=== PATIENT | male | born 1930 | race Caucasian/White ===

== ENCOUNTER 2019-01-10 19:40 | Inpatient (IN) ==
[2019-01-10] MEDS ORDERED: ONDANSETRON 4 MG/2 ML VIAL IV ONE (19:49)
[2019-01-10] MEDS ORDERED: HYDROmorphone 2 MG/ML VIAL IV PRN ×3 (19:49→21:32)
--- NOTE | 2019-01-10 19:59 | Emergency Department Note ---
Abdominal Pain HPI - General Chief Complaint: Abdominal Pain Stated Complaint: right lower abdomen pain Time Seen by Provider: 01/10/19 19:42 Source: patient Mode of arrival: wheelchair Limitations: no limitations - History of Present Illness HPI Narrative: 88-year-old male presents after his primary care provider called him and told him to come into the ER. He has had 24-hour period of right lower quadrant abdominal pain that is getting worse. Increases with any type of movement but is also constant. Positive chills but unknown fever. Positive nausea but no vomiting or diarrhea. Decreased appetite. States he ate yesterday but has only drink water today. States he is continuing to get worse instead of better. Primary care provider called him and told him to come to the ER because CT scan results were given tonight at 1900 and show appendicitis. - Related Data Home Medications Medication Instructions Recorded Confirmed aspirin 81 mg tablet,delayed 81 mg PO QAM tab 12/14/17 01/10/19 release carvedilol 6.25 mg tablet 6.25 mg PO BID 12/14/17 01/10/19 gabapentin 100 mg capsule 100 mg PO BID cap 12/14/17 01/10/19 hydrocodone 5 mg-acetaminophen 325 1 tab PO Q6H PRN 12/14/17 01/10/19 mg tablet levothyroxine 112 mcg capsule 112 mcg PO QDAY 12/14/17 01/10/19 losartan 50 mg tablet 50 mg PO QDAY 12/14/17 01/10/19 simvastatin 20 mg tablet 20 mg PO QDAY tab 12/14/17 01/10/19 triamcinolone acetonide 0.1 % 1 applic TOPICAL QDAY 12/14/17 01/10/19 topical cream Previous Rx's Medication Instructions Recorded hydrocodone 5 mg-acetaminophen 325 1 tab PO Q6H PRN #20 tab 01/10/19 mg tablet ondansetron 4 mg disintegrating 4 mg PO Q6H PRN #20 tab 01/10/19 tablet Allergies Allergy/AdvReac Type Severity Reaction Status Date / Time No Known Drug Allergies Allergy Verified 01/10/19 19:45 Review of Systems All systems ED: reviewed and negative except as stated. Abdominal Pain PMH - Past Medical History PMFSH Narrative: Medical History (Last Reviewed 01/10/19 @ 10:09 by Anuradha Hogan PA-C) History of cardiac murmur (Chronic) Abdominal lymphadenopathy (Chronic) Hypertension (Chronic) Gross hematuria (Chronic) UTI (urinary tract infection) (Chronic) Past Surgical History (Last Reviewed 01/10/19 @ 10:09 by Anuradha Hogan PA-C) History of surgery (Acute) S/P hernia repair (Acute) History of cataract surgery (Chronic) - Social History Smoking status: Former smoker Alcohol use: Reports: None Drug use: Reports: none Physical Exam Limitations: no limitations General appearance: alert, grimacing Head: atraumatic, normocephalic, normal inspection Eye: Present: normal appearance. Absent: conjunctival injection ENT: Present: mucous membranes moist Chest: Present: symmetric chest wall rise Respiratory: Present: normal lung sounds bilaterally. Absent: respiratory distress, rales/crackles, wheezes, accessory muscle use Cardiovascular: Present: regular rate, normal heart sounds Abdominal: Present: soft, tenderness (rlq), guarding (rlq), rebound (rlq), normal bowel sounds. Absent: distention, mass Neurological: Present: alert, oriented X3 Psychiatric: Present: normal affect, normal mood Skin: Present: warm, dry, intact, normal color. Absent: rash, hives, cyanosis, diaphoresis Course Course Narrative: I did talk to the surgeon on-call, Dr. Tavarez at 1955 and he agrees to accept this patient. He would like me to place some ED transition orders in place patient n.p.o. after midnight in preparation for surgery in the morning. Patient agreeable. Vital Signs Temperature 98.5 F 01/10/19 19:41 Pulse Rate 84 01/10/19 19:41 Respiratory Rate 20 01/10/19 19:41 Blood Pressure 112/64 01/10/19 19:41 Pulse Oximetry (%) 95 01/10/19 19:41 Temperature 98.5 F 01/10/19 19:41 Pulse Rate 84 01/10/19 19:41 Respiratory Rate 20 01/10/19 19:41 Blood Pressure 112/64 01/10/19 19:41 Pulse Oximetry (%) 95 01/10/19 19:41 Abdominal Pain - Lab Data Lab results reviewed: Yes I reviewed the patient's lab results. - Radiology Data Radiology results reviewed: Yes I reviewed the patient's radiology results. Disposition Pt seen by [facility]/PA only: Yes Clinical Impression: Appendicitis, Abdominal pain, Nausea Disposition: Xfer As Outpt/Obs ([facility]) Condition: Fair Referrals: Alec Diggs MD [Primary Care Provider] - Satish Tavarez MD [Physician] - Time of Disposition: 20:00
[2019-01-10] MEDS ORDERED: 0.9 % SODIUM CHLORIDE 1,000 ML IV SCH (20:00)
[2019-01-10] MEDS ORDERED: ONDANSETRON 4 MG/2 ML VIAL IV PRN (20:03)
[2019-01-10 20:31] LABS: Basophils # (Auto) 0 K/mcL (0.0-0.3); Basophils % (Auto) 0.2 % (0.0-2.0); Eosinophils # (Auto) 0 K/mcL (0.0-0.7); Eosinophils % (Auto) 0 % (0.0-7.0); Granulocytes % (Auto) 45.4 % (38.0-78.0); Hematocrit 41.5 % (41.0-55.0); Hemoglobin 13.6 g/dL (13.5-16.5); Lymphocytes # (Auto) 9.5 K/mcL (1.5-4.8); Mean Cell Volume 88.9 fL (80.0-100.0); Mean Corpuscular HGB Conc 32.8 g/dL (31.0-36.0); Mean Platelet Volume 7.5 fL (7.4-10.4); Monocytes # (Auto) 1.5 K/mcL (0.1-0.9); Monocytes % (Auto) 7.4 % (1.0-12.0); Platelet Count 134 K/mcL (140-440); RBC 4.67 M/mcL (4.50-5.90); Red Cell Distribution Width 15.2 % (11.5-14.5); WBC 20.2 K/mcL (4.5-11.0)
[2019-01-10] MEDS: PIPERACILLIN SODIUM/TAZOBACTAM 3.375 GM in DEXTROSE 5% IN WATER 50 ML IV SCH (20:34)
[2019-01-10 20:50] LABS: ALT/SGPT 8 U/l (0-40); AST/SGOT 17 U/l (0-37); Albumin 3.8 gm/dL (3.2-5.2); Albumin/Globulin Ratio 1.3 (1.0-2.3); Alkaline Phosphatase 33 U/L (39-117); Bilirubin,Total 1.8 mg/dL (0.0-1.0); Blood Urea Nitrogen 28 mg/dl (8-23); Calcium 8.7 mg/dl (8.6-10.4); Carbon Dioxide 23 mmol/L (22-30); Chloride 99 mmol/L (96-108); Globulin 2.9 gm/dL (2.2-3.7); Glomerular Filtration Rate 45; Glucose 109 mg/dL (70-105)
[2019-01-10] MEDS: 0.9 % SODIUM CHLORIDE 1,000 ML IV SCH (21:35)
[2019-01-10 22:41] LABS: INR 1.3 (0.9-1.1); Prothrombin Time 16.5 sec (11.9-14.5)
[2019-01-10] MEDS ORDERED: HYDROmorphone 2 MG/ML VIAL ONE (23:22)
--- NOTE | 2019-01-11 02:52 | XRay Report ---
CLINICAL INFORMATION: surgery COMPARISON: None. FINDINGS: Heart is borderline enlarged. 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 Sternotomy changes noted. Tortuous thoracic aorta appreciated. The remaining mediastinum and pulmonary vessels are normal. Chronic elevation of the left diaphragm has resulted in subsegmental atelectasis in the left base. No infiltrates IMPRESSION: No acute disease Interpreted and Authenticated by: Mike Weiner 01/11/19
[2019-01-11] MEDS: PIPERACILLIN SODIUM/TAZOBACTAM 3.375 GM in DEXTROSE 5% IN WATER 50 ML IV SCH (02:55)
[2019-01-11] MEDS ORDERED: IPRATROPIUM/ALBUTEROL 3 ML AMPUL.NEB NEB PRN ×2 (07:00→11:42)
[2019-01-11] MEDS ORDERED: SCOPOLAMINE 1 PATCH PATCH TOPICAL PRN (07:00)
[2019-01-11] MEDS: PIPERACILLIN SODIUM/TAZOBACTAM 2.25 GM in DEXTROSE 5% IN WATER 50 ML IV SCH ×4 (08:09→17:47)
[2019-01-11] MEDS: 0.9 % SODIUM CHLORIDE 1,000 ML IV SCH ×2 (09:43→13:06)
--- NOTE | 2019-01-11 09:59 | General Surg History&Physical ---
History of Present Illness Patient information: Note initiated : 01/11/19 at 9:57 am Service Date, if different from initiated Date: [] Patient: Billy Zelaya 88 y/o M admitted on 01/10/19 for right lower abdomen pain. Chief Complaint: [] HPI: Mr. Zelaya is a 88 year old M admitted with appendicitis. The patient has a 2 day history of chills fever, nausea, vomiting and lower abdominal pain. The pain started in the mid hypogastrium and radiated to the right lower quadrant. Is primarily right lower quadrant at this time. He was initially seen in urgent care and discharged home to have a CT. Blood work that was drawn showed a white count of 20,[address] showed changes of acute appendicitis. He will return to the emergency room and was admitted. Patient remains symptomatic and is scheduled for appendectomy later today. 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 Hypertension History of UTI and BPH symptoms Past surgical history: porcine valve replacement 6 years ago; he is not sure of site Ventral hernia repair Past family history: Father due to heart attack Hypertension Mother age 92 due to natural causes Past social history: Former smoker Drinks alcohol twice weekly Denies drug use Medications and Allergies Home Medications Medication Instructions Recorded Confirmed Type aspirin 81 mg tablet,delayed 81 mg PO QAM tab 12/14/17 01/10/19 History release carvedilol 6.25 mg tablet 6.25 mg PO BID 12/14/17 01/10/19 History gabapentin 100 mg capsule 100 mg PO BID cap 12/14/17 01/10/19 History hydrocodone 5 mg-acetaminophen 325 1 tab PO Q6H PRN 12/14/17 01/10/19 History mg tablet levothyroxine 112 mcg capsule 112 mcg PO QDAY 12/14/17 01/10/19 History losartan 50 mg tablet 50 mg PO QDAY 12/14/17 01/10/19 History simvastatin 20 mg tablet 20 mg PO QDAY tab 12/14/17 01/10/19 History triamcinolone acetonide 0.1 % 1 applic TOPICAL QDAY 12/14/17 01/10/19 History topical cream hydrocodone 5 mg-acetaminophen 325 1 tab PO Q6H PRN #20 tab 01/10/19 01/10/19 Rx mg tablet ondansetron 4 mg disintegrating 4 mg PO Q6H PRN #20 tab 01/10/19 01/10/19 Rx tablet Allergies Allergy/AdvReac Type Severity Reaction Status Date / Time No Known Drug Allergies Allergy Verified 01/10/19 19:45 Exam Temp Pulse Resp BP Pulse Ox 98.7 F 73 14 104/59 92 01/11/19 07:04 01/11/19 07:04 01/11/19 07:04 01/11/19 07:04 01/11/19 07:04 - General physical appearance well developed, well nourished, no distress, other (patient appears to be in relatively good health) - Eyes PERRL, normal ocular movement - ENT normal pinna, normal nares, normal mucosa, no hearing loss, no congestion - Head Head exam IM: Present: atraumatic, normocephalic - Neck no masses, no bruits, trachea midline, no lymphadenopathy, no venous distension - Cardiovascular Cardiovascular exam IM: Present: normal rate and rhythm, irregular rhythm, +S1, +S2, tachycardia. Absent: JVD Type of murmur IM: Present: systolic (midsystolic click) - Respiratory normal expansion, normal respiratory effort, clear to percussion, clear to auscultation - Abdomen Abdomen: Present: soft, tender, bowel sounds, distended (mild distention with active bowel sounds; tenderness with guarding in the right lower quadrant) Hernia: Present: none - Genitourinary Present: normal penis with no external lesions - Integumentary Present: no rash, no growths, no abnormal pigmentation - Neurologic Present: normal coordination, normal sensation - Musculoskeletal Present: normal gait, normal posture - Psychiatric Present: oriented to time, oriented to person, oriented to place, speech is normal, memory intact Assessment and Plan (1) Acute appendicitis Patient has been counseled for laparoscopic appendectomy. He has received intravenous antibiotics Status: Acute Qualifiers: Acute appendicitis type: with localized peritonitis Appendicitis perforati on presence: without perforation (2) History of heart valve replacement with porcine valve Status: Acute (3) History of cardiac murmur Status: Chronic (4) Hypertension Status: Chronic
[2019-01-11 10:36] LABS: Appearance,Urine CLEAR; Bacteria,Urine 0 /hpf (0); Bilirubin,Urine NEG (NEG); Color,Urine YELLOW; Culture Indicated,Urine NO; Glucose,Urine (UA) NEGATIVE (NEG); Ketones,Urine NEG (NEG); Leukocyte Esterase,Urine NEG /uL (NEG); Nitrate,Urine NEG (NEG); Protein,Urine 100 mg/dL (NEG); Specific Gravity,Urine 1.051 (1.000-1.035); Urine Blood NEG mg/dL (<0.03); Urine RBC 3 /hpf (0-1); Urine Squamous Epithelial Cell 0 /hpf (0-4); Urine WBC 1 /hpf (0-4); Urobilinogen,Urine NEG (NEG)
[2019-01-11 10:44] LABS: Basophils # (Auto) 0 K/mcL (0.0-0.3); Basophils % (Auto) 0.1 % (0.0-2.0); Eosinophils # (Auto) 0 K/mcL (0.0-0.7); Eosinophils % (Auto) 0.1 % (0.0-7.0); Hematocrit 36.9 % (41.0-55.0); Hemoglobin 12.2 g/dL (13.5-16.5); Lymphocytes # (Auto) 7.7 K/mcL (1.5-4.8); Lymphocytes % (Auto) 45.2 % (15.5-49.0); Mean Cell Volume 88.4 fL (80.0-100.0); Mean Corpuscular HGB Conc 33.1 g/dL (31.0-36.0); Monocytes # (Auto) 1.1 K/mcL (0.1-0.9); Monocytes % (Auto) 6.6 % (1.0-12.0); Platelet Count 108 K/mcL (140-440); RBC 4.17 M/mcL (4.50-5.90); Red Cell Distribution Width 15.1 % (11.5-14.5); WBC 17.1 K/mcL (4.5-11.0)
[2019-01-11] MEDS ORDERED: ONDANSETRON 4 MG/2 ML VIAL IV ONE (11:15)
[2019-01-11] MEDS ORDERED: DEXAMETHASONE 10 MG/ML VIAL IV ONE (11:15)
[2019-01-11] MEDS ORDERED: SUGAMMADEX SODIUM 200 MG/2 ML VIAL IV ONE (11:15)
[2019-01-11] MEDS ORDERED: KETAMINE 100 MG/ML ML IV ONE (11:15)
[2019-01-11] MEDS ORDERED: PHENYLEPHRINE 10 MG/ML VIAL IV ONE (11:15)
[2019-01-11] MEDS ORDERED: MIDAZOLAM 2 MG/2 ML VIAL IV ONE (11:15)
[2019-01-11] MEDS ORDERED: fentaNYL 250 MCG/5 ML VIAL IV ONE (11:15)
[2019-01-11] MEDS ORDERED: ROCURONIUM 10 MG/ML ML IV ONE (11:15)
[2019-01-11] MEDS ORDERED: LIDOCAINE HCL/PF 100 MG/5 ML SYRINGE IV ONE (11:15)
[2019-01-11] MEDS ORDERED: PROPOFOL 200 MG/20 ML VIAL IV ONE (11:15)
[2019-01-11] MEDS ORDERED: ePHEDrine 50 MG/ML AMPUL IV ONE (11:15)
[2019-01-11] MEDS ORDERED: GLYCOPYRROLATE 0.2 MG/ML VIAL IV ONE (11:15)
[2019-01-11] MEDS ORDERED: ACETAMINOPHEN 1,000 MG/100 ML BOTTLE IV ONE (11:42)
[2019-01-11] MEDS ORDERED: LACTATED RINGERS 250 ML IV PRN (11:42)
[2019-01-11] MEDS ORDERED: NALOXONE HCL 0.4 MG/ML VIAL IV PRN ×2 (11:42→12:27)
[2019-01-11] MEDS ORDERED: FLUMAZENIL 0.1 MG/ML ML IV PRN (11:42)
[2019-01-11] MEDS ORDERED: BENZOCAINE/MENTHOL 1 LOZENGE PO PRN (11:42)
[2019-01-11] MEDS ORDERED: HYDROmorphone 2 MG/ML VIAL IV PRN (11:42)
[2019-01-11] MEDS ORDERED: MEPERIDINE 25 MG/ML SYRINGE IV PRN (11:42)
[2019-01-11] MEDS ORDERED: ONDANSETRON 4 MG/2 ML VIAL IV PRN ×2 (11:42→12:27)
[2019-01-11] MEDS ORDERED: METHOCARBAMOL 1,000 MG/10 ML VIAL IV PRN (11:42)
[2019-01-11] MEDS ORDERED: fentaNYL 100 MCG/2 ML VIAL IV PRN (11:42)
[2019-01-11] MEDS ORDERED: LACTATED RINGERS 1,000 ML IV SCH (11:45)
[2019-01-11 11:46] LABS: ALT/SGPT 8 U/l (0-40); AST/SGOT 13 U/l (0-37); Albumin 3.2 gm/dL (3.2-5.2); Albumin/Globulin Ratio 1.4 (1.0-2.3); Alkaline Phosphatase 35 U/L (39-117); Bilirubin,Direct 0.4 mg/dL (0.0-0.3); Bilirubin,Total 1.3 mg/dL (0.0-1.0); Blood Urea Nitrogen 28 mg/dl (8-23); Calcium 7.8 mg/dl (8.6-10.4); Carbon Dioxide 23 mmol/L (22-30); Chloride 104 mmol/L (96-108); Globulin 2.3 gm/dL (2.2-3.7); Glomerular Filtration Rate 45; Glucose 86 mg/dL (70-105); Lactate Dehydrogenase 242 U/L (94-250); Phosphorous 3.6 mg/dL (2.7-4.5); Triglycerides 61 mg/dl (<150); Uric Acid 3.6 mg/dL (2.5-8.0)
--- NOTE | 2019-01-11 12:16 | Brief Operative Note ---
Date of procedure: 01/11/19 Pre-op diagnosis: acute appendicitis Post-op diagnosis: other (acute appendicitis with perforation) Procedure: laparoscopic appendectomy Grafts/Implants: No (#10 RENUKA DRAIN) Anesthesia: GETA Findings: ACUTE SEVERE INFLAMMATION WITH PERFORATION AND PELVIC PURULENT FLUID Complications: none Surgeon: Satish Tavarez Estimated blood loss (cc): 10 Specimens Removed/Pathology: other (APPENDIX) Condition: stable Disposition: PACU
[2019-01-11] MEDS ORDERED: PIPERACILLIN SODIUM/TAZOBACTAM 3.375 GM in DEXTROSE 5% IN WATER 50 ML IV SCH (12:30)
[2019-01-11] MEDS: 0.9 % SODIUM CHLORIDE 10 ML SYRINGE IV SCH ×2 (13:07→20:51)
--- NOTE | 2019-01-11 15:33 | Operative Note ---
DATE OF OPERATION: 01/11/2019 PREOPERATIVE DIAGNOSIS: Acute appendicitis. POSTOPERATIVE DIAGNOSIS: Acute appendicitis with perforation. PROCEDURE: Laparoscopic appendectomy. SURGEON: Satish Tavarez M.D. FINDINGS: Acute severe inflammation of the appendix with perforation and collection of purulent fluid in the pelvis. DESCRIPTION OF PROCEDURE: Under general anesthesia, the patient's abdomen was prepped and draped in a sterile field. An infraumbilical incision was made and Veress needle was inserted uneventfully. Abdomen was insufflated with 3 liters of CO2. A 12 mm port was placed. Laparoscope was placed. Under videoscopic guidance, a 5 mm port was placed in the suprapubic midline and a 12 mm port in the left lower quadrant. The patient was placed in deep Trendelenburg position and rotated to the left. It was noted that there was purulence in the pelvis. There was also purulence along the right gutter. In this area, a very severely inflamed, edematous appendix with necrotic areas was noted. There was an area of perforation with free pouring of pus down the right gutter. The mesoappendix was grasped, and the appendix was followed back to its junction with the cecum. A window was made in the mesoappendix at this point. The appendix was transected using an Endo MARISSA stapler. The mesoappendix was transected using an Endo MARISSA stapler. The appendix was placed in an Endopouch and retrieved. Copious irrigation in the right gutter and in the pelvis was carried out until the fluid returned clear. A #10 David drain was placed in the right gutter and in the pelvis and brought out through the suprapubic midline incision. Further irrigation was carried out. There was no bleeding. CO2 was allowed to escape from the abdomen and the ports were removed. Fascia at the umbilicus was closed with interrupted 0 Vicryl. Fascia in the left lower quadrant was closed with interrupted 0 Vicryl. The drain was secured with 2-0 nylon. Tegaderm dressings were placed. The patient tolerated the procedure well. He was awakened, extubated, and transferred to the postanesthetic care unit in stable, satisfactory condition. LCS:meme Job ID: [id number] Doc ID: [id number] Satish Tavarez M.D.
[2019-01-11] MEDS: CARVEDILOL 6.25 MG TABLET PO SCH (17:47)
[2019-01-11] MEDS: GABAPENTIN 100 MG CAPSULE PO SCH (21:01)
[2019-01-12] MEDS: PIPERACILLIN SODIUM/TAZOBACTAM 2.25 GM in DEXTROSE 5% IN WATER 50 ML IV SCH ×5 (00:06→23:51)
[2019-01-12] MEDS: 0.9 % SODIUM CHLORIDE 1,000 ML IV SCH ×2 (04:04→17:19)
[2019-01-12 05:38] LABS: Basophils # (Auto) 0 K/mcL (0.0-0.3); Basophils % (Auto) 0.1 % (0.0-2.0); Eosinophils # (Auto) 0 K/mcL (0.0-0.7); Eosinophils % (Auto) 0.2 % (0.0-7.0); Granulocytes % (Auto) 48.5 % (38.0-78.0); Hematocrit 36.5 % (41.0-55.0); Hemoglobin 11.9 g/dL (13.5-16.5); Lymphocytes # (Auto) 7.6 K/mcL (1.5-4.8); Lymphocytes % (Auto) 45.8 % (15.5-49.0); Mean Cell Volume 89.3 fL (80.0-100.0); Mean Corpuscular HGB Conc 32.6 g/dL (31.0-36.0); Mean Platelet Volume 7.8 fL (7.4-10.4); Monocytes # (Auto) 0.9 K/mcL (0.1-0.9); Monocytes % (Auto) 5.4 % (1.0-12.0); Platelet Count 106 K/mcL (140-440); RBC 4.09 M/mcL (4.50-5.90); Red Cell Distribution Width 15.2 % (11.5-14.5); WBC 16.5 K/mcL (4.5-11.0)
[2019-01-12] MEDS: 0.9 % SODIUM CHLORIDE 10 ML SYRINGE IV SCH ×3 (06:01→21:47)
[2019-01-12 06:03] LABS: ALT/SGPT 12 U/l (0-40); AST/SGOT 15 U/l (0-37); Albumin 3.1 gm/dL (3.2-5.2); Albumin/Globulin Ratio 1.3 (1.0-2.3); Alkaline Phosphatase 42 U/L (39-117); Bilirubin,Direct 0.2 mg/dL (0.0-0.3); Bilirubin,Total 0.7 mg/dL (0.0-1.0); Blood Urea Nitrogen 31 mg/dl (8-23); Calcium 7.4 mg/dl (8.6-10.4); Carbon Dioxide 23 mmol/L (22-30); Chloride 99 mmol/L (96-108); Globulin 2.4 gm/dL (2.2-3.7); Glomerular Filtration Rate 42; Glucose 160 mg/dL (70-105); Lactate Dehydrogenase 227 U/L (94-250); Phosphorous 3.2 mg/dL (2.7-4.5); Triglycerides 64 mg/dl (<150)
[2019-01-12] MEDS: LEVOTHYROXINE 125 MCG TABLET PO SCH (07:40)
[2019-01-12] MEDS: CARVEDILOL 6.25 MG TABLET PO SCH ×2 (08:12→17:36)
[2019-01-12] MEDS: GABAPENTIN 100 MG CAPSULE PO SCH ×2 (08:41→21:15)
[2019-01-12] MEDS: LOSARTAN 50 MG TABLET PO SCH (08:41)
[2019-01-12] MEDS ORDERED: LEVOTHYROXINE SODIUM 112 MCG PO SCH (09:00)
[2019-01-12] MEDS ORDERED: FLU VACC QS2019-20(6MOS UP)/PF 60 MCG/0.5 ML SYRINGE IM ONE (10:00)
--- NOTE | 2019-01-12 13:10 | Surgical Pathology Report ---
HISTOLOGY SPECIMEN MICROSCOPIC DIAGNOSIS APPENDIX, APPENDECTOMY: -- ACUTE APPENDICITIS WITH SEROSITIS. (EBD:celi) PROCEDURAL IMPRESSION Acute appendicitis. GROSS DESCRIPTION Received in formalin labeled appendix, is a lugo-stevenson appendix with stevenson attached fat and measures 7.4 cm in length x 1 cm in diameter. The margin is stapled and inked black with up to 1.7 cm of stevenson attached fat. There is lugo-stevenson exudate on the surface. Approximately 1.3 cm from the resection margin there is a 0.5 x 0.8 cm dusky lugo area. Sectioning reveals stevenson fecal material and an area corresponding with the serosal exudate. There is a 0.5 cm possible cavity filled with viscous lugo material. Intelligence Clerk sections are submitted in one cassette. (SCB:celi) Electronically Signed by: Linda Aguilar M.D.
--- NOTE | 2019-01-12 16:48 | General Surgery Progress Note ---
Subjective Patient reports: feels better, pain is less, tolerating liquids well, flatus, no bowel movement, afebrile Narrative: Note initiated : 01/12/19 at 4:45 pm Service Date, if different from initiated Date: [] Patient: Billy Zelaya 88 y/o M admitted on 01/10/19 for right lower abdomen pain. Chief Complaint: Patient states that he feels better. He has been afebrile. He had mild nausea earlier but has tolerated liquids on day. He's had flatus but no bowel movement. White blood count 16.5, hemoglobin 11.9, BUN 31, creatinine 1.5. MIRA drainage is purulent & bloody.] Objective Temp Pulse Resp BP Pulse Ox 97.8 F 68 18 138/72 94 01/12/19 12:00 01/12/19 12:00 01/12/19 12:00 01/12/19 12:00 01/12/19 12:00 - Additional Data Intake & Output - Last 24 hours: Intake & Output 01/10/19 01/11/19 01/12/19 01/13/19 05:59 05:59 05:59 05:59 Intake Total 92 2410 1210 Output Total 125 720 885 Balance -33 1690 325 Weight 154 lb 165 lb 165 lb - General physical appearance well developed, well nourished, no distress, other (mild pain in the right lower quadrant) - Eyes PERRL, normal ocular movement - ENT normal pinna, normal nares, normal mucosa, no hearing loss, no congestion - Neck no masses, no bruits, trachea midline, no lymphadenopathy, no venous distension - Respiratory normal expansion, normal respiratory effort, clear to auscultation - Cardiovascular Cardiovascular exam: Present: normal rate and rhythm, RRR, +S1, +S2. Absent: JVD, tachycardia - Abdomen tender (tenderness in right lower quadrant and around port sites), bowel sounds (present), surgical scars (none), masses (none), distended (mild distention and lower abdomen) - Integumentary no rash, no growths, no abnormal pigmentation - Neurologic normal coordination, normal sensation - Musculoskeletal normal gait, normal posture - Psychiatric oriented to time, oriented to person, oriented to place, speech is normal, memory intact - Labs 01/12/19 04:32 01/12/19 04:32 Diabetes panel 01/12/19 Range/Units 04:32 Sodium 130 L (133-145) mmol/L Potassium 4.4 (3.3-5.1) mmol/L Chloride 99 (96-108) mmol/L Carbon Dioxide 23 (22-30) mmol/L BUN 31 H (8-23) mg/dl Creatinine 1.5 H (0.7-1.2) mg/dl Glucose 160 H (70-105) mg/dL Calcium 7.4 L (8.6-10.4) mg/dl AST 15 (0-37) U/l ALT 12 (0-40) U/l Alkaline Phosphatase 42 (39-117) U/L Total Protein 5.5 L (5.9-8.4) gm/dL Albumin 3.1 L (3.2-5.2) gm/dL Triglycerides 64 (<150) mg/dl Calcium panel 01/12/19 Range/Units 04:32 Calcium 7.4 L (8.6-10.4) mg/dl Phosphorus 3.2 (2.7-4.5) mg/dL Albumin 3.1 L (3.2-5.2) gm/dL Pituitary panel 01/12/19 Range/Units 04:32 Sodium 130 L (133-145) mmol/L Potassium 4.4 (3.3-5.1) mmol/L Chloride 99 (96-108) mmol/L Carbon Dioxide 23 (22-30) mmol/L BUN 31 H (8-23) mg/dl Creatinine 1.5 H (0.7-1.2) mg/dl Glucose 160 H (70-105) mg/dL Calcium 7.4 L (8.6-10.4) mg/dl Adrenal panel 01/12/19 Range/Units 04:32 Sodium 130 L (133-145) mmol/L Potassium 4.4 (3.3-5.1) mmol/L Chloride 99 (96-108) mmol/L Carbon Dioxide 23 (22-30) mmol/L BUN 31 H (8-23) mg/dl Creatinine 1.5 H (0.7-1.2) mg/dl Glucose 160 H (70-105) mg/dL Calcium 7.4 L (8.6-10.4) mg/dl Total Bilirubin 0.7 (0.0-1.0) mg/dL AST 15 (0-37) U/l ALT 12 (0-40) U/l Alkaline Phosphatase 42 (39-117) U/L Total Protein 5.5 L (5.9-8.4) gm/dL Albumin 3.1 L (3.2-5.2) gm/dL Assessment and Plan (1) Acute appendicitis Status: Acute Assessment and plan: Clinically improved but still with significant leukocytosis We'll check pro-calcitonin Advance diet in the morning Current Visit: Yes (2) History of heart valve replacement with porcine valve Status: Acute Current Visit: Yes (3) History of cardiac murmur Status: Chronic Current Visit: No (4) Hypertension Status: Chronic Current Visit: No (5) Dehydration, moderate Status: Acute Assessment and plan: We'll continue slow hydration due to advanced age Current Visit: Yes - Time Spent With Patient Total time spent is greater than 50% in coordination of care (as documented) at patient's floor/unit and/or counseling patient:
[2019-01-12] MEDS: HYDROmorphone 2 MG/ML VIAL IV PRN (18:22)
[2019-01-12] MEDS: ACETAMINOPHEN 1,000 MG/100 ML BOTTLE IV SCH (19:15)
[2019-01-13] MEDS: ACETAMINOPHEN 1,000 MG/100 ML BOTTLE IV SCH ×4 (01:00→19:24)
[2019-01-13 05:27] LABS: Basophils # (Auto) 0 K/mcL (0.0-0.3); Basophils % (Auto) 0.1 % (0.0-2.0); Eosinophils # (Auto) 0.1 K/mcL (0.0-0.7); Eosinophils % (Auto) 0.4 % (0.0-7.0); Granulocytes % (Auto) 33.8 % (38.0-78.0); Hematocrit 37.2 % (41.0-55.0); Hemoglobin 12.1 g/dL (13.5-16.5); Lymphocytes # (Auto) 13.1 K/mcL (1.5-4.8); Lymphocytes % (Auto) 60.3 % (15.5-49.0); Mean Cell Volume 89.9 fL (80.0-100.0); Mean Corpuscular HGB Conc 32.7 g/dL (31.0-36.0); Mean Platelet Volume 7.8 fL (7.4-10.4); Monocytes # (Auto) 1.2 K/mcL (0.1-0.9); Monocytes % (Auto) 5.4 % (1.0-12.0); Platelet Count 121 K/mcL (140-440); RBC 4.13 M/mcL (4.50-5.90); Red Cell Distribution Width 15.6 % (11.5-14.5); WBC 21.7 K/mcL (4.5-11.0)
[2019-01-13] MEDS: PIPERACILLIN SODIUM/TAZOBACTAM 2.25 GM in DEXTROSE 5% IN WATER 50 ML IV SCH ×4 (05:28→23:17)
[2019-01-13] MEDS: 0.9 % SODIUM CHLORIDE 10 ML SYRINGE IV SCH ×3 (05:29→21:03)
[2019-01-13 05:40] LABS: ALT/SGPT 11 U/l (0-40); AST/SGOT 13 U/l (0-37); Albumin/Globulin Ratio 1.3 (1.0-2.3); Alkaline Phosphatase 39 U/L (39-117); Bilirubin,Direct < 0.2 mg/dL (0.0-0.3); Bilirubin,Total 0.6 mg/dL (0.0-1.0); Blood Urea Nitrogen 24 mg/dl (8-23); Calcium 7.8 mg/dl (8.6-10.4); Carbon Dioxide 25 mmol/L (22-30); Chloride 103 mmol/L (96-108); Globulin 2.4 gm/dL (2.2-3.7); Glomerular Filtration Rate 45; Glucose 98 mg/dL (70-105); Lactate Dehydrogenase 210 U/L (94-250); Phosphorous 2.5 mg/dL (2.7-4.5); Triglycerides 111 mg/dl (<150); Uric Acid 3.2 mg/dL (2.5-8.0)
[2019-01-13] MEDS: LEVOTHYROXINE 125 MCG TABLET PO SCH (07:35)
[2019-01-13] MEDS: GABAPENTIN 100 MG CAPSULE PO SCH ×2 (08:13→21:01)
[2019-01-13] MEDS: CARVEDILOL 6.25 MG TABLET PO SCH ×2 (08:14→17:10)
[2019-01-13] MEDS: LOSARTAN 50 MG TABLET PO SCH (08:14)
[2019-01-13] MEDS: 0.9 % SODIUM CHLORIDE 1,000 ML IV SCH ×2 (11:41→19:27)
--- NOTE | 2019-01-13 14:01 | General Surgery Progress Note ---
Subjective Patient reports: flatus, bowel movement, afebrile Narrative: Note initiated : 01/13/19 at 1:59 pm Service Date, if different from initiated Date: [] Patient: Billy Zelaya 88 y/o M admitted on 01/10/19 for right lower abdomen pain. Chief Complaint: [patient developed severe abdominal pain last evening. This was followed by major output through his MIRA drain which was seropurulent. He remains afebrile but his white count has increased to 21,000. He has anorexia but denies nausea.] Objective Temp Pulse Resp BP Pulse Ox 97.5 F 63 16 150/78 95 01/13/19 10:58 01/13/19 10:58 01/13/19 10:58 01/13/19 10:58 01/13/19 10:58 - Additional Data Intake & Output - Last 24 hours: Intake & Output 01/11/19 01/12/19 01/13/19 01/14/19 05:59 05:59 05:59 05:59 Intake Total 92 2410 2960 1580 Output Total 470 712 7946 1055 Balance -33 1690 305 525 Weight 154 lb 165 lb 167 lb - General physical appearance well developed, well nourished, no distress - Eyes PERRL, normal ocular movement - ENT normal pinna, normal nares, normal mucosa, no congestion, decreased hearing - Neck no masses, no bruits, trachea midline, no lymphadenopathy, no venous distension - Respiratory normal expansion, normal respiratory effort, clear to auscultation - Cardiovascular Cardiovascular exam: Present: normal rate and rhythm, RRR, +S1, +S2. Absent: JVD, tachycardia - Abdomen tender (mild tenderness around 4 slice otherwise unremarkable), bowel sounds (present), surgical scars (none), masses (none) - Integumentary no rash, no growths, no abnormal pigmentation - Neurologic normal coordination, normal sensation - Musculoskeletal normal gait, normal posture - Psychiatric oriented to time, oriented to person, oriented to place, speech is normal, memory intact - Labs 01/13/19 04:38 01/13/19 04:38 Diabetes panel 01/13/19 Range/Units 04:38 Sodium 135 (133-145) mmol/L Potassium 4.3 (3.3-5.1) mmol/L Chloride 103 (96-108) mmol/L Carbon Dioxide 25 (22-30) mmol/L BUN 24 H (8-23) mg/dl Creatinine 1.4 H (0.7-1.2) mg/dl Glucose 98 (70-105) mg/dL Calcium 7.8 L (8.6-10.4) mg/dl AST 13 (0-37) U/l ALT 11 (0-40) U/l Alkaline Phosphatase 39 (39-117) U/L Total Protein 5.4 L (5.9-8.4) gm/dL Albumin 3.0 L (3.2-5.2) gm/dL Triglycerides 111 (<150) mg/dl Calcium panel 01/13/19 Range/Units 04:38 Calcium 7.8 L (8.6-10.4) mg/dl Phosphorus 2.5 L (2.7-4.5) mg/dL Albumin 3.0 L (3.2-5.2) gm/dL Pituitary panel 01/13/19 Range/Units 04:38 Sodium 135 (133-145) mmol/L Potassium 4.3 (3.3-5.1) mmol/L Chloride 103 (96-108) mmol/L Carbon Dioxide 25 (22-30) mmol/L BUN 24 H (8-23) mg/dl Creatinine 1.4 H (0.7-1.2) mg/dl Glucose 98 (70-105) mg/dL Calcium 7.8 L (8.6-10.4) mg/dl Adrenal panel 01/13/19 Range/Units 04:38 Sodium 135 (133-145) mmol/L Potassium 4.3 (3.3-5.1) mmol/L Chloride 103 (96-108) mmol/L Carbon Dioxide 25 (22-30) mmol/L BUN 24 H (8-23) mg/dl Creatinine 1.4 H (0.7-1.2) mg/dl Glucose 98 (70-105) mg/dL Calcium 7.8 L (8.6-10.4) mg/dl Total Bilirubin 0.6 (0.0-1.0) mg/dL AST 13 (0-37) U/l ALT 11 (0-40) U/l Alkaline Phosphatase 39 (39-117) U/L Total Protein 5.4 L (5.9-8.4) gm/dL Albumin 3.0 L (3.2-5.2) gm/dL Assessment and Plan (1) Acute appendicitis Status: Acute Assessment and plan: still with significant leukocytosis Advance diet in the morning Current Visit: Yes (2) History of heart valve replacement with porcine valve Status: Acute Current Visit: Yes (3) History of cardiac murmur Status: Chronic Current Visit: No (4) Hypertension Status: Chronic Current Visit: No (5) Dehydration, moderate Status: Acute Assessment and plan: We'll continue slow hydration due to advanced age Current Visit: Yes - Time Spent With Patient Total time spent is greater than 50% in coordination of care (as documented) at patient's floor/unit and/or counseling patient:
[2019-01-14] MEDS: ACETAMINOPHEN 1,000 MG/100 ML BOTTLE IV SCH ×4 (00:58→21:16)
[2019-01-14] MEDS: 0.9 % SODIUM CHLORIDE 1,000 ML IV SCH ×3 (03:26→17:44)
[2019-01-14 05:18] LABS: Basophils # (Auto) 0 K/mcL (0.0-0.3); Basophils % (Auto) 0.1 % (0.0-2.0); Eosinophils # (Auto) 0.1 K/mcL (0.0-0.7); Eosinophils % (Auto) 0.7 % (0.0-7.0); Granulocytes % (Auto) 23.3 % (38.0-78.0); Hemoglobin 12.1 g/dL (13.5-16.5); Lymphocytes # (Auto) 10.3 K/mcL (1.5-4.8); Lymphocytes % (Auto) 70.2 % (15.5-49.0); Mean Cell Volume 89.7 fL (80.0-100.0); Mean Corpuscular HGB Conc 32.7 g/dL (31.0-36.0); Mean Platelet Volume 7.5 fL (7.4-10.4); Monocytes # (Auto) 0.8 K/mcL (0.1-0.9); Monocytes % (Auto) 5.7 % (1.0-12.0); Platelet Count 131 K/mcL (140-440); RBC 4.13 M/mcL (4.50-5.90); WBC 14.7 K/mcL (4.5-11.0)
[2019-01-14 05:36] LABS: ALT/SGPT 11 U/l (0-40); AST/SGOT 13 U/l (0-37); Albumin 2.8 gm/dL (3.2-5.2); Albumin/Globulin Ratio 1.2 (1.0-2.3); Alkaline Phosphatase 36 U/L (39-117); Bilirubin,Direct < 0.2 mg/dL (0.0-0.3); Bilirubin,Total 0.6 mg/dL (0.0-1.0); Blood Urea Nitrogen 18 mg/dl (8-23); Calcium 8.2 mg/dl (8.6-10.4); Carbon Dioxide 25 mmol/L (22-30); Chloride 108 mmol/L (96-108); Globulin 2.4 gm/dL (2.2-3.7); Glomerular Filtration Rate 49; Glucose 84 mg/dL (70-105); Lactate Dehydrogenase 204 U/L (94-250); Phosphorous 3.7 mg/dL (2.7-4.5); Triglycerides 113 mg/dl (<150); Uric Acid 3.2 mg/dL (2.5-8.0)
[2019-01-14] MEDS: 0.9 % SODIUM CHLORIDE 10 ML SYRINGE IV SCH ×3 (06:06→21:49)
[2019-01-14] MEDS: PIPERACILLIN SODIUM/TAZOBACTAM 2.25 GM in DEXTROSE 5% IN WATER 50 ML IV SCH ×4 (06:11→23:35)
[2019-01-14] MEDS: CARVEDILOL 6.25 MG TABLET PO SCH ×2 (07:17→17:42)
[2019-01-14] MEDS: LOSARTAN 50 MG TABLET PO SCH (07:18)
[2019-01-14] MEDS: LEVOTHYROXINE 125 MCG TABLET PO SCH (07:18)
[2019-01-14] MEDS: GABAPENTIN 100 MG CAPSULE PO SCH ×2 (07:18→20:23)
--- NOTE | 2019-01-14 10:06 | General Surgery Progress Note ---
Subjective Patient reports: feels better, pain is less, tolerating liquids well, flatus, no bowel movement, afebrile Narrative: Note initiated : 01/14/19 at 10:04 am Service Date, if different from initiated Date: [] Patient: Billy Zelaya 88 y/o M admitted on 01/12/19 for right lower abdomen pain. Chief Complaint: [Patient continues to improve. He does not have any discomfort in his lower abdomen. He's been afebrile. White blood count 14.7, hemoglobin 12.1, hematocrit 37, BUN 18, creatinine 1. JVP drainage is more serous and clear and now. No purulence noted] Objective Temp Pulse Resp BP Pulse Ox 97.7 F 67 18 167/85 95 01/14/19 07:09 01/14/19 07:09 01/14/19 07:09 01/14/19 07:09 01/14/19 07:09 - Additional Data Intake & Output - Last 24 hours: Intake & Output 01/12/19 01/13/19 01/14/19 01/15/19 05:59 05:59 05:59 05:59 Intake Total 2410 2960 4340 100 Output Total 720 2655 2765 Balance 3358 972 3699 100 Weight 165 lb 167 lb 167 lb - General physical appearance well developed, well nourished, no distress - Eyes PERRL, normal ocular movement - ENT normal pinna, normal nares, normal mucosa, no congestion, decreased hearing - Neck no masses, no bruits, trachea midline, no lymphadenopathy, no venous distension - Respiratory normal expansion, normal respiratory effort, clear to auscultation - Cardiovascular Cardiovascular exam: Present: normal rate and rhythm, RRR, +S1, +S2. Absent: JVD, tachycardia - Abdomen tender (mild tenderness around port sites otherwise benign abdomen), bowel sounds (present), surgical scars (none), masses (none) - Integumentary no rash, no growths, no abnormal pigmentation - Neurologic normal coordination, normal sensation - Musculoskeletal normal gait, normal posture - Psychiatric oriented to time, oriented to person, oriented to place, speech is normal, memory intact - Labs 01/14/19 04:17 01/14/19 04:17 Diabetes panel 01/14/19 Range/Units 04:17 Sodium 142 (133-145) mmol/L Potassium 4.6 (3.3-5.1) mmol/L Chloride 108 (96-108) mmol/L Carbon Dioxide 25 (22-30) mmol/L BUN 18 (8-23) mg/dl Creatinine 1.3 H (0.7-1.2) mg/dl Glucose 84 (70-105) mg/dL Calcium 8.2 L (8.6-10.4) mg/dl AST 13 (0-37) U/l ALT 11 (0-40) U/l Alkaline Phosphatase 36 L (39-117) U/L Total Protein 5.2 L (5.9-8.4) gm/dL Albumin 2.8 L (3.2-5.2) gm/dL Triglycerides 113 (<150) mg/dl Calcium panel 01/14/19 Range/Units 04:17 Calcium 8.2 L (8.6-10.4) mg/dl Phosphorus 3.7 (2.7-4.5) mg/dL Albumin 2.8 L (3.2-5.2) gm/dL Pituitary panel 01/14/19 Range/Units 04:17 Sodium 142 (133-145) mmol/L Potassium 4.6 (3.3-5.1) mmol/L Chloride 108 (96-108) mmol/L Carbon Dioxide 25 (22-30) mmol/L BUN 18 (8-23) mg/dl Creatinine 1.3 H (0.7-1.2) mg/dl Glucose 84 (70-105) mg/dL Calcium 8.2 L (8.6-10.4) mg/dl Adrenal panel 01/14/19 Range/Units 04:17 Sodium 142 (133-145) mmol/L Potassium 4.6 (3.3-5.1) mmol/L Chloride 108 (96-108) mmol/L Carbon Dioxide 25 (22-30) mmol/L BUN 18 (8-23) mg/dl Creatinine 1.3 H (0.7-1.2) mg/dl Glucose 84 (70-105) mg/dL Calcium 8.2 L (8.6-10.4) mg/dl Total Bilirubin 0.6 (0.0-1.0) mg/dL AST 13 (0-37) U/l ALT 11 (0-40) U/l Alkaline Phosphatase 36 L (39-117) U/L Total Protein 5.2 L (5.9-8.4) gm/dL Albumin 2.8 L (3.2-5.2) gm/dL Assessment and Plan (1) Acute appendicitis Status: Acute Assessment and plan: Leukocytosis is much improved Diet will be advanced Current Visit: Yes (2) History of heart valve replacement with porcine valve Status: Acute Current Visit: Yes (3) History of cardiac murmur Status: Chronic Current Visit: No (4) Hypertension Status: Chronic Current Visit: No (5) Dehydration, moderate Status: Acute Assessment and plan: Dehydration is resolved Current Visit: Yes - Time Spent With Patient Total time spent is greater than 50% in coordination of care (as documented) at patient's floor/unit and/or counseling patient:
[2019-01-14] MEDS ORDERED: FUROSEMIDE 20 MG/2 ML VIAL IV ONE ×2 (20:32→21:30)
[2019-01-15] MEDS: 0.9 % SODIUM CHLORIDE 1,000 ML IV SCH (02:01)
[2019-01-15] MEDS: ACETAMINOPHEN 1,000 MG/100 ML BOTTLE IV SCH ×3 (02:19→13:01)
[2019-01-15 05:18] LABS: Basophils # (Auto) 0 K/mcL (0.0-0.3); Basophils % (Auto) 0.3 % (0.0-2.0); Eosinophils # (Auto) 0.2 K/mcL (0.0-0.7); Eosinophils % (Auto) 1.2 % (0.0-7.0); Granulocytes % (Auto) 19.9 % (38.0-78.0); Hematocrit 40.4 % (41.0-55.0); Hemoglobin 12.9 g/dL (13.5-16.5); Lymphocytes # (Auto) 12.3 K/mcL (1.5-4.8); Lymphocytes % (Auto) 71.8 % (15.5-49.0); Mean Cell Volume 89.8 fL (80.0-100.0); Mean Platelet Volume 7.1 fL (7.4-10.4); Monocytes # (Auto) 1.2 K/mcL (0.1-0.9); Monocytes % (Auto) 6.8 % (1.0-12.0); Platelet Count 173 K/mcL (140-440); Red Cell Distribution Width 15.5 % (11.5-14.5); WBC 17.2 K/mcL (4.5-11.0)
[2019-01-15 05:32] LABS: ALT/SGPT 13 U/l (0-40); AST/SGOT 15 U/l (0-37); Albumin 3.1 gm/dL (3.2-5.2); Albumin/Globulin Ratio 1.2 (1.0-2.3); Alkaline Phosphatase 41 U/L (39-117); Bilirubin,Direct < 0.2 mg/dL (0.0-0.3); Bilirubin,Total 0.5 mg/dL (0.0-1.0); Blood Urea Nitrogen 16 mg/dl (8-23); Calcium 8.5 mg/dl (8.6-10.4); Carbon Dioxide 26 mmol/L (22-30); Chloride 105 mmol/L (96-108); Globulin 2.6 gm/dL (2.2-3.7); Glomerular Filtration Rate 45; Glucose 95 mg/dL (70-105); Lactate Dehydrogenase 220 U/L (94-250); Phosphorous 4.4 mg/dL (2.7-4.5); Triglycerides 121 mg/dl (<150); Uric Acid 3.8 mg/dL (2.5-8.0)
[2019-01-15] MEDS: PIPERACILLIN SODIUM/TAZOBACTAM 2.25 GM in DEXTROSE 5% IN WATER 50 ML IV SCH ×2 (06:06→12:25)
[2019-01-15] MEDS: 0.9 % SODIUM CHLORIDE 10 ML SYRINGE IV SCH ×3 (06:07→20:16)
[2019-01-15] MEDS: LEVOTHYROXINE 125 MCG TABLET PO SCH (07:36)
[2019-01-15] MEDS: GABAPENTIN 100 MG CAPSULE PO SCH ×2 (08:08→20:16)
[2019-01-15] MEDS: LOSARTAN 50 MG TABLET PO SCH (08:08)
[2019-01-15] MEDS: CARVEDILOL 6.25 MG TABLET PO SCH ×2 (08:08→18:04)
--- NOTE | 2019-01-15 13:31 | General Surgery Progress Note ---
Subjective Patient reports: feels better, pain is less, diarrhea, afebrile Narrative: Note initiated : 01/15/19 at 1:30 pm Service Date, if different from initiated Date: [] Patient: Billy Zelaya 88 y/o M admitted on 01/12/19 for right lower abdomen pain. Chief Complaint: [patient is doing well except for episodic diarrhea. He has minimal abdominal tenderness. He denies nausea. He does have abdominal distention.white blood count increased to 17.2, hemoglobin 12.9, BUN 9, creatinine 1.4.] Objective Temp Pulse Resp BP Pulse Ox 97.1 F 75 16 152/85 94 01/15/19 07:39 01/15/19 07:39 01/15/19 07:39 01/15/19 07:39 01/15/19 07:39 - Additional Data Intake & Output - Last 24 hours: Intake & Output 01/13/19 01/14/19 01/15/19 01/16/19 05:59 05:59 05:59 05:59 Intake Total 2960 4340 3708 597 Output Total 2655 2765 2650 450 Balance 305 1575 1058 147 Weight 167 lb 167 lb 164 lb - General physical appearance well developed, well nourished, no distress - Eyes PERRL, normal ocular movement - ENT normal pinna, normal nares, normal mucosa, no hearing loss, no congestion - Neck no masses, no bruits, trachea midline, no lymphadenopathy, no venous distension - Respiratory normal expansion, normal respiratory effort, clear to auscultation - Cardiovascular Cardiovascular exam: Present: normal rate and rhythm, RRR, +S1, +S2. Absent: JVD, tachycardia - Abdomen non tender, bowel sounds (present), surgical scars (none), masses (none) - Genitourinary normal penis with no external lesions - Integumentary no rash, no growths, no abnormal pigmentation - Neurologic normal coordination, normal sensation - Musculoskeletal normal gait, normal posture - Psychiatric oriented to time, oriented to person, oriented to place, speech is normal, memory intact - Labs 01/17/19 09:00 01/16/19 05:24 Diabetes panel 01/15/19 Range/Units 04:27 Sodium 140 (133-145) mmol/L Potassium 4.3 (3.3-5.1) mmol/L Chloride 105 (96-108) mmol/L Carbon Dioxide 26 (22-30) mmol/L BUN 16 (8-23) mg/dl Creatinine 1.4 H (0.7-1.2) mg/dl Glucose 95 (70-105) mg/dL Calcium 8.5 L (8.6-10.4) mg/dl AST 15 (0-37) U/l ALT 13 (0-40) U/l Alkaline Phosphatase 41 (39-117) U/L Total Protein 5.7 L (5.9-8.4) gm/dL Albumin 3.1 L (3.2-5.2) gm/dL Triglycerides 121 (<150) mg/dl Calcium panel 01/15/19 Range/Units 04:27 Calcium 8.5 L (8.6-10.4) mg/dl Phosphorus 4.4 (2.7-4.5) mg/dL Albumin 3.1 L (3.2-5.2) gm/dL Pituitary panel 01/15/19 Range/Units 04:27 Sodium 140 (133-145) mmol/L Potassium 4.3 (3.3-5.1) mmol/L Chloride 105 (96-108) mmol/L Carbon Dioxide 26 (22-30) mmol/L BUN 16 (8-23) mg/dl Creatinine 1.4 H (0.7-1.2) mg/dl Glucose 95 (70-105) mg/dL Calcium 8.5 L (8.6-10.4) mg/dl Adrenal panel 01/15/19 Range/Units 04:27 Sodium 140 (133-145) mmol/L Potassium 4.3 (3.3-5.1) mmol/L Chloride 105 (96-108) mmol/L Carbon Dioxide 26 (22-30) mmol/L BUN 16 (8-23) mg/dl Creatinine 1.4 H (0.7-1.2) mg/dl Glucose 95 (70-105) mg/dL Calcium 8.5 L (8.6-10.4) mg/dl Total Bilirubin 0.5 (0.0-1.0) mg/dL AST 15 (0-37) U/l ALT 13 (0-40) U/l Alkaline Phosphatase 41 (39-117) U/L Total Protein 5.7 L (5.9-8.4) gm/dL Albumin 3.1 L (3.2-5.2) gm/dL Assessment and Plan (1) Acute appendicitis Status: Acute Assessment and plan: The E coli is resistant to piperacillin Switch to IV ciprofloxacin and metronidazole If positive response will discharge on oral meds 7 days Current Visit: Yes (2) History of heart valve replacement with porcine valve Status: Acute Current Visit: Yes (3) History of cardiac murmur Status: Chronic Current Visit: No (4) Hypertension Status: Chronic Current Visit: No (5) Dehydration, moderate Status: Acute Assessment and plan: Dehydration is resolved Current Visit: Yes - Time Spent With Patient Total time spent is greater than 50% in coordination of care (as documented) at patient's floor/unit and/or counseling patient:
[2019-01-15] MEDS: metroNIDAZOLE 500 MG/100 ML BAG IV SCH ×3 (13:35→23:21)
[2019-01-15] MEDS ORDERED: ACETAMINOPHEN 325 MG TABLET PO PRN (13:50)
[2019-01-15] MEDS: CEFEPIME 2 GM VIAL IV SCH ×2 (14:48→23:21)
[2019-01-16] MEDS: HYDROmorphone 2 MG/ML VIAL IV PRN (04:27)
[2019-01-16] MEDS: 0.9 % SODIUM CHLORIDE 10 ML SYRINGE IV SCH ×3 (04:28→21:39)
[2019-01-16] MEDS: metroNIDAZOLE 500 MG/100 ML BAG IV SCH ×4 (06:04→23:55)
[2019-01-16 06:32] LABS: Basophils # (Auto) 0 K/mcL (0.0-0.3); Basophils % (Auto) 0.2 % (0.0-2.0); Eosinophils # (Auto) 0.2 K/mcL (0.0-0.7); Granulocytes % (Auto) 18.1 % (38.0-78.0); Hematocrit 38.6 % (41.0-55.0); Hemoglobin 12.6 g/dL (13.5-16.5); Lymphocytes # (Auto) 11.7 K/mcL (1.5-4.8); Lymphocytes % (Auto) 72.4 % (15.5-49.0); Mean Cell Volume 88.9 fL (80.0-100.0); Mean Corpuscular HGB Conc 32.6 g/dL (31.0-36.0); Monocytes # (Auto) 1.4 K/mcL (0.1-0.9); Monocytes % (Auto) 8.3 % (1.0-12.0); Platelet Count 168 K/mcL (140-440); RBC 4.35 M/mcL (4.50-5.90); Red Cell Distribution Width 15.7 % (11.5-14.5); WBC 16.2 K/mcL (4.5-11.0)
[2019-01-16 06:43] LABS: ALT/SGPT 16 U/l (0-40); AST/SGOT 19 U/l (0-37); Albumin 3.1 gm/dL (3.2-5.2); Albumin/Globulin Ratio 1.2 (1.0-2.3); Alkaline Phosphatase 39 U/L (39-117); Bilirubin,Direct < 0.2 mg/dL (0.0-0.3); Bilirubin,Total 0.4 mg/dL (0.0-1.0); Blood Urea Nitrogen 20 mg/dl (8-23); Calcium 8.3 mg/dl (8.6-10.4); Carbon Dioxide 26 mmol/L (22-30); Chloride 103 mmol/L (96-108); Globulin 2.6 gm/dL (2.2-3.7); Glomerular Filtration Rate 42; Glucose 95 mg/dL (70-105); Lactate Dehydrogenase 226 U/L (94-250); Phosphorous 3.8 mg/dL (2.7-4.5); Triglycerides 120 mg/dl (<150); Uric Acid 3.9 mg/dL (2.5-8.0)
[2019-01-16] MEDS: LEVOTHYROXINE 125 MCG TABLET PO SCH (07:48)
[2019-01-16] MEDS: CARVEDILOL 6.25 MG TABLET PO SCH ×2 (07:49→17:43)
[2019-01-16] MEDS: LOPERAMIDE 2 MG CAPSULE PO PRN (07:49)
[2019-01-16] MEDS: LOSARTAN 50 MG TABLET PO SCH (08:12)
[2019-01-16] MEDS: GABAPENTIN 100 MG CAPSULE PO SCH ×2 (08:12→21:39)
[2019-01-16] MEDS: CEFEPIME 2 GM VIAL IV SCH ×2 (09:49→21:39)
--- NOTE | 2019-01-16 16:44 | General Surgery Progress Note ---
Subjective Patient reports: feels better, pain is less, tolerating a regular diet, flatus, bowel movement, afebrile Narrative: Note initiated : 01/16/19 at 4:42 pm Service Date, if different from initiated Date: [] Patient: Billy Zelaya 88 y/o M admitted on 01/12/19 for right lower abdomen pain. Chief Complaint: [Patient is doing well except for leukocytosis. He is tolerating diet without difficulty. He is afebrile. White blood count 16.2, hemoglobin 12.6, hematocrit 36, creatinine 1.5. He has had excellent output after Lasix.] Objective Temp Pulse Resp BP Pulse Ox 97.3 F 75 14 168/83 93 01/16/19 12:00 01/16/19 12:00 01/16/19 12:00 01/16/19 12:00 01/16/19 12:00 - Additional Data Intake & Output - Last 24 hours: Intake & Output 01/14/19 01/15/19 01/16/19 01/17/19 05:59 05:59 05:59 05:59 Intake Total 4340 3708 3087 100 Output Total 2765 2650 2480 750 Balance 1575 1058 607 -650 Weight 167 lb 164 lb 161 lb - General physical appearance well developed, well nourished, no distress - Eyes PERRL, normal ocular movement - ENT normal pinna, normal nares, normal mucosa, no congestion, decreased hearing - Neck no masses, no bruits, trachea midline, no lymphadenopathy, no venous distension - Respiratory normal expansion, normal respiratory effort, clear to auscultation - Cardiovascular Cardiovascular exam: Present: normal rate and rhythm, RRR (is the), +S1, +S2 ( fascia with continuous 6). Absent: tachycardia - Abdomen soft, non tender, bowel sounds (present), surgical scars (none), masses (none) - Rectum normal sphincter tone, no hemorrhoids, no tenderness, no masses, no bleeding - Integumentary no rash (I didn't think it was), no growths, no abnormal pigmentation - Neurologic normal coordination, normal sensation - Musculoskeletal normal gait, normal posture - Psychiatric oriented to time, oriented to person, oriented to place, speech is normal, memory intact - Labs 01/16/19 05:24 01/16/19 05:24 Diabetes panel 01/16/19 Range/Units 05:24 Sodium 139 (133-145) mmol/L Potassium 4.3 (3.3-5.1) mmol/L Chloride 103 (96-108) mmol/L Carbon Dioxide 26 (22-30) mmol/L BUN 20 (8-23) mg/dl Creatinine 1.5 H (0.7-1.2) mg/dl Glucose 95 (70-105) mg/dL Calcium 8.3 L (8.6-10.4) mg/dl AST 19 (0-37) U/l ALT 16 (0-40) U/l Alkaline Phosphatase 39 (39-117) U/L Total Protein 5.7 L (5.9-8.4) gm/dL Albumin 3.1 L (3.2-5.2) gm/dL Triglycerides 120 (<150) mg/dl Calcium panel 01/16/19 Range/Units 05:24 Calcium 8.3 L (8.6-10.4) mg/dl Phosphorus 3.8 (2.7-4.5) mg/dL Albumin 3.1 L (3.2-5.2) gm/dL Pituitary panel 01/16/19 Range/Units 05:24 Sodium 139 (133-145) mmol/L Potassium 4.3 (3.3-5.1) mmol/L Chloride 103 (96-108) mmol/L Carbon Dioxide 26 (22-30) mmol/L BUN 20 (8-23) mg/dl Creatinine 1.5 H (0.7-1.2) mg/dl Glucose 95 (70-105) mg/dL Calcium 8.3 L (8.6-10.4) mg/dl Adrenal panel 01/16/19 Range/Units 05:24 Sodium 139 (133-145) mmol/L Potassium 4.3 (3.3-5.1) mmol/L Chloride 103 (96-108) mmol/L Carbon Dioxide 26 (22-30) mmol/L BUN 20 (8-23) mg/dl Creatinine 1.5 H (0.7-1.2) mg/dl Glucose 95 (70-105) mg/dL Calcium 8.3 L (8.6-10.4) mg/dl Total Bilirubin 0.4 (0.0-1.0) mg/dL AST 19 (0-37) U/l ALT 16 (0-40) U/l Alkaline Phosphatase 39 (39-117) U/L Total Protein 5.7 L (5.9-8.4) gm/dL Albumin 3.1 L (3.2-5.2) gm/dL Assessment and Plan (1) Acute appendicitis Status: Acute Assessment and plan: The E coli is resistant to piperacillin Switch to IV ciprofloxacin and metronidazole If positive response will discharge on oral meds 7 days Current Visit: Yes (2) History of heart valve replacement with porcine valve Status: Acute Current Visit: Yes (3) History of cardiac murmur Status: Chronic Current Visit: No (4) Hypertension Status: Chronic Current Visit: No (5) Dehydration, moderate Status: Acute Assessment and plan: Dehydration is resolved Current Visit: Yes - Time Spent With Patient Total time spent is greater than 50% in coordination of care (as documented) at patient's floor/unit and/or counseling patient:
[2019-01-17] MEDS: metroNIDAZOLE 500 MG/100 ML BAG IV SCH ×2 (05:26→12:33)
[2019-01-17] MEDS: 0.9 % SODIUM CHLORIDE 10 ML SYRINGE IV SCH (05:26)
[2019-01-17] MEDS: LOSARTAN 50 MG TABLET PO SCH (08:15)
[2019-01-17] MEDS: GABAPENTIN 100 MG CAPSULE PO SCH (08:15)
[2019-01-17] MEDS: CARVEDILOL 6.25 MG TABLET PO SCH (08:15)
[2019-01-17] MEDS: LOPERAMIDE 2 MG CAPSULE PO PRN (08:15)
[2019-01-17] MEDS: LEVOTHYROXINE 125 MCG TABLET PO SCH (08:15)
[2019-01-17] MEDS: CEFEPIME 2 GM VIAL IV SCH (10:18)
[2019-01-17 11:51] LABS: Basophils # (Auto) 0 K/mcL (0.0-0.3); Basophils % (Auto) 0.2 % (0.0-2.0); Eosinophils # (Auto) 0.2 K/mcL (0.0-0.7); Eosinophils % (Auto) 1.1 % (0.0-7.0); Granulocytes % (Auto) 15.4 % (38.0-78.0); Hematocrit 41.5 % (41.0-55.0); Hemoglobin 13.4 g/dL (13.5-16.5); Lymphocytes # (Auto) 12.8 K/mcL (1.5-4.8); Lymphocytes % (Auto) 76.6 % (15.5-49.0); Mean Cell Volume 88.8 fL (80.0-100.0); Mean Corpuscular HGB Conc 32.2 g/dL (31.0-36.0); Mean Platelet Volume 7.1 fL (7.4-10.4); Monocytes # (Auto) 1.1 K/mcL (0.1-0.9); Monocytes % (Auto) 6.7 % (1.0-12.0); Platelet Count 208 K/mcL (140-440); RBC 4.67 M/mcL (4.50-5.90); Red Cell Distribution Width 15.9 % (11.5-14.5); WBC 16.7 K/mcL (4.5-11.0)
--- NOTE | 2019-01-17 13:05 | Discharge Summary ---
Providers - Providers Patient information: Note initiated : 01/17/19 at 1:01 pm Service Date, if different from initiated Date: [] Patient: Billy Zelaya 88 y/o M admitted on 01/12/19 for right lower abdomen pain. Chief Complaint: [] Date of admission: 01/10/19 Discharge date: 01/17/19 Attending physician: Satish Tavarez Hospitalization Hospital Course: 88-year-old male who presented to the emergency room with a two-day history of lower abdominal and right lower quadrant pain with nausea and vomiting. He was found to have a white count of 20,000. CT of the abdomen reveals acute appendicitis. On 11 January an appendectomy was done. He had an area of perforation with free pelvic fluid and fluid in the right gutter. Copious washout was carried out and the area was drained. Immediately postprocedure his white count was 16,500 and dropped to 14,700. A subsequently increased and is now 16,700. Patient has been afebrile and he has minimal discomfort. He has not had leukocytosis. The drainage was initially purulent but is now more serous. He is tolerating diet without difficulty. He is stable for discharge home. Cultures grew out Escherichia coli which was resistant to Zosyn but se nsitive to ciprofloxacin he has been on ciprofloxacin and will be continued for another week. Discharge diagnosis: acute appendicitis with perforation Secondary discharge diagnosis: (Pelvic abscess Reason for admission: abdominal pain nausea and vomiting Procedures: Laparoscopic appendectomy Pertinent studies/significant findings: CT of abdomen and pelvis with IV contrast Complications: None Exam Temp Pulse Resp BP Pulse Ox 97.5 F 73 20 127/80 93 01/17/19 12:00 01/17/19 12:00 01/17/19 12:00 01/17/19 12:00 01/17/19 12:00 - General physical appearance well developed, well nourished, no distress - Eyes PERRL, normal ocular movement - ENT normal pinna, normal nares, normal mucosa, no hearing loss, no congestion - Head Head exam IM: Present: atraumatic, normocephalic - Neck no masses, no bruits, trachea midline, no lymphadenopathy, no venous distension - Cardiovascular Cardiovascular exam IM: Present: normal rate and rhythm - Respiratory normal expansion, normal respiratory effort, clear to percussion, clear to auscultation - Abdomen Abdomen: Present: soft, tender (mild tenderness at port site was benign abdomen), bowel sounds Hernia: Present: none - Genitourinary Present: normal penis with no external lesions - Integumentary Present: no rash, no growths, no abnormal pigmentation - Neurologic Present: normal coordination, normal sensation - Musculoskeletal Present: normal gait, normal posture - Psychiatric Present: oriented to time, oriented to person, oriented to place, speech is normal, memory intact Discharge Plan - Patient/Caregiver Discharge Instructions Activity: increase activity as tolerated Diet: Regular Diet Prescriptions: Ciprofloxacin [Cipro] 500 mg PO BID #20 tab Transmission Status: Pending to [facility] #[id number] metroNIDAZOLE [Metronidazole] 500 mg PO Q8 #30 tab Transmission Status: Pending to [facility] #[id number] - Follow up Plan Follow up with: Alec Diggs MD [Primary Care Provider] - Satish Tavarez MD [Physician] - 01/26/19 8:45 am Disposition: Home, Self-Care Care Plan Goals: This discharge packet is provided to you to help keep you informed about your care. We want to ensure you get everything you need when you go home. You will also be receiving a call from us in a few days to follow up with you and see how you are doing since your discharge. This gives us a chance to listen to any concerns you maybe experiencing since you were discharged or any additional needs you may have, as well as providing us feedback on your care experience. We strive to always provide excellent care and thank you for your feedback and for choosing [facility]. Prognosis: Good Rehab Potential: Good I certify that the patient requires SNF services.: No Overall status at discharge: patient is progressing back to baseline Pending Studies Resuscitation Status Full Code Diet Regular Diet Start Sat Jan 14 1007 Acetaminophen (Tylenol) 650 mg PO Q4-6HP PRN; Protocol PRN Reason: Per Pain Protocol/Fever > 101 Last Admin: 01/16/19 07:49 Dose: 650 mg Documented by: [email or web address] Carvedilol (Coreg) 6.25 mg PO BIDCC [facility] Last Admin: 01/17/19 08:15 Dose: 6.25 mg Documented by: [email or web address] Admin: 01/16/19 17:43 Dose: 6.25 mg Documented by: [email or web address] Admin: 01/16/19 07:49 Dose: 6.25 mg Documented by: [email or web address] Admin: 01/15/19 18:04 Dose: 6.25 mg Documented by: [email or web address] Admin: 01/15/19 08:08 Dose: 6.25 mg Documented by: [email or web address] Admin: 01/14/19 17:42 Dose: 6.25 mg Documented by: Admin: 01/14/19 07:17 Dose: 6.25 mg Documented by: Admin: 01/13/19 17:10 Dose: 6.25 mg Documented by: [email or web address] Admin: 01/13/19 08:14 Dose: 6.25 mg Documented by: [email or web address] Admin: 01/12/19 17:36 Dose: 6.25 mg Documented by: [facility] Admin: 01/12/19 08:12 Dose: 6.25 mg Documented by: [facility] Admin: 01/11/19 17:47 Dose: 6.25 mg Documented by: [facility] Cefepime HCl (Maxipime) 2 gm IV Q12H [facility]; Protocol Last Admin: 01/17/19 10:18 Dose: 2 gm Documented by: [email or web address] Admin: 01/16/19 21:39 Dose: 2 gm Documented by: Admin: 01/16/19 09:49 Dose: 2 gm Documented by: [email or web address] Admin: 01/15/19 23:21 Dose: 2 gm Documented by: Admin: 01/15/19 14:48 Dose: 2 gm Documented by: [email or web address] Gabapentin (Neurontin) 100 mg PO BID [facility] Last Admin: 01/17/19 08:15 Dose: 100 mg Documented by: [email or web address] Admin: 01/16/19 21:39 Dose: 100 mg Documented by: Admin: 01/16/19 08:12 Dose: 100 mg Documented by: [email or web address] Admin: 01/15/19 20:16 Dose: 100 mg Documented by: Admin: 01/15/19 08:08 Dose: 100 mg Documented by: [email or web address] Admin: 01/14/19 20:23 Dose: 100 mg Documented by: Admin: 01/14/19 07:18 Dose: 100 mg Documented by: Admin: 01/13/19 21:01 Dose: 100 mg Documented by: Admin: 01/13/19 08:13 Dose: 100 mg Documented by: Admin: 01/12/19 21:15 Dose: 100 mg Documented by: Admin: 01/12/19 08:41 Dose: 100 mg Documented by: Admin: 01/11/19 21:01 Dose: 100 mg Documented by: ELISA Hydromorphone HCl (Dilaudid) 0.5 mg IV Q2HP PRN; Protocol PRN Reason: Per Pain Protocol Last Admin: 01/16/19 04:27 Dose: 0.5 mg Documented by: Admin: 01/12/19 18:22 Dose: 0.5 mg Documented by: LUIS Metronidazole (Flagyl) 500 mg in 100 mls @ 100 mls/hr IV Q6H [facility]TE; Protocol Last Admin: 01/17/19 12:33 Dose: 100 mls/hr Documented by: Infusion: 01/17/19 06:30 Dose: 0 mls/hr Documented by: Admin: 01/17/19 05:26 Dose: 100 mls/hr Documented by: Infusion: 01/17/19 01:00 Dose: 0 mls/hr Documented by: Admin: 01/16/19 23:55 Dose: 100 mls/hr Documented by: Infusion: 01/16/19 18:43 Dose: 100 mls/hr Documented by: Admin: 01/16/19 17:43 Dose: 100 mls/hr Documented by: Infusion: 01/16/19 13:18 Dose: 100 mls/hr Documented by: Admin: 01/16/19 12:18 Dose: 100 mls/hr Documented by: Infusion: 01/16/19 07:05 Dose: 0 mls/hr Documented by: Admin: 01/16/19 06:04 Dose: 100 mls/hr Documented by: Infusion: 01/16/19 00:21 Dose: 100 mls/hr Documented by: Admin: 01/15/19 23:21 Dose: 100 mls/hr Documented by: Infusion: 01/15/19 19:10 Dose: 0 mls/hr Documented by: Admin: 01/15/19 18:04 Dose: 100 mls/hr Documented by: [email or web address] Infusion: 01/15/19 14:41 Dose: 0 mls/hr Documented by: [email or web address] Admin: 01/15/19 13:35 Dose: 100 mls/hr Documented by: [email or web address] Levothyroxine Sodium (Synthroid) 125 mcg PO QAMAC [facility] Last Admin: 01/17/19 08:15 Dose: 125 mcg Documented by: [email or web address] Admin: 01/16/19 07:48 Dose: 125 mcg Documented by: [email or web address] Admin: 01/15/19 07:36 Dose: 125 mcg Documented by: [email or web address] Admin: 01/14/19 07:18 Dose: 125 mcg Documented by: Admin: 01/13/19 07:35 Dose: 125 mcg Documented by: Admin: 01/12/19 07:40 Dose: 125 mcg Documented by: KAZ Loperamide HCl (Imodium) 4 mg PO Q4 PRN PRN Reason: Diarrhea Last Admin: 01/17/19 08:15 Dose: 4 mg Documented by: [email or web address] Admin: 01/16/19 07:49 Dose: 4 mg Documented by: [email or web address] Losartan Potassium (Cozaar) 50 mg PO QDAY [facility] Last Admin: 01/17/19 08:15 Dose: 50 mg Documented by: [email or web address] Admin: 01/16/19 08:12 Dose: 50 mg Documented by: [email or web address] Admin: 01/15/19 08:08 Dose: 50 mg Documented by: [email or web address] Admin: 01/14/19 07:18 Dose: 50 mg Documented by: Admin: 01/13/19 08:14 Dose: 50 mg Documented by: Admin: 01/12/19 08:41 Dose: 50 mg Documented by: KAZ Sodium Chloride (Saline Flush) 10 ml IV Q8 [facility] Last Admin: 01/17/19 05:26 Dose: 10 ml Documented by: Admin: 01/16/19 21:39 Dose: 10 ml Documented by: Admin: 01/16/19 17:43 Dose: 10 ml Documented by: Admin: 01/16/19 04:28 Dose: 10 ml Documented by: Admin: 01/15/19 20:16 Dose: 10 ml Documented by: Admin: 01/15/19 14:47 Dose: 10 ml Documented by: [email or web address] Admin: 01/15/19 06:07 Dose: 10 ml Documented by: Admin: 01/14/19 21:49 Dose: 10 ml Documented by: Admin: 01/14/19 15:58 Dose: Not Given Documented by: Admin: 01/14/19 06:06 Dose: Not Given Documented by: Admin: 01/13/19 21:03 Dose: Not Given Documented by: Admin: 01/13/19 13:35 Dose: Not Given Documented by: Admin: 01/13/19 05:29 Dose: Not Given Documented by: Admin: 01/12/19 21:47 Dose: Not Given Documented by: Admin: 01/12/19 14:08 Dose: Not Given Documented by: JEAN MARIEF Admin: 01/12/19 06:01 Dose: Not Given Documented by: Admin: 01/11/19 20:51 Dose: Not Given Documented by: [email or web address] Admin: 01/11/19 13:07 Dose: Not Given Documented by: [facility] Shift Summary 01/17/19 04:48 Shift Summary by Paula Del Toro Pt is A&Ox4. SBP running in 140s to 150s. Other VSS on RA. Up ad renae in room to BR (voids per urinal in BR). 2 lap sites to abdomen with aman & Tegaderm. MIRA drain x1 w/serosanguineous drainage. IVs to left upper arm, SL, and right AC, SL. Denies pain. Will update with verbal report. Initialized on 01/17/19 04:48 - END OF NOTE
== END 2019-01-17 16:37 | disposition home or self-care (01) | DRG 340 ==
LOC: MEDSUR 19:40 → ED 19:40 → MEDSUR 20:44
PROVIDERS: ADMIT Family Medicine Adult Medicine; ATTEND Family Medicine Adult Medicine